=== PATIENT | male | born 1985 | race Caucasian/White ===

== ENCOUNTER 2017-08-08 20:32 | Emergency (ER) | payer SELFPAY ==
[~2017-08-08] VITALS: Ht 172.7 cm; Wt 71.2 kg
[2017-08-08 21:22] LABS: INFLUENZA A NONE DETECTED (NONE DETECT); INFLUENZA B NONE DETECTED (NONE DETECT)
[2017-08-08] MEDS ORDERED: AMOXICILLIN500 MG PO (21:28)
[2017-08-08] MEDS ORDERED: ROBITUSSIN AC10 ML PO (21:28)
[2017-08-08 21:39] VITALS: BP 127/86
== END 2017-08-08 21:40 | disposition home or self-care (01) | DRG 153 ==
LOC: ED 20:32
PROVIDERS: Emergency Medicine
DX: J02.9 Acute pharyngitis, unspecified (principal); F17.210 Nicotine dependence, cigarettes, uncomplicated

== ENCOUNTER 2017-08-18 16:36 | Emergency (ER) | payer SELFPAY ==
[~2017-08-18] VITALS: Ht 172.7 cm; Wt 75.0 kg
[~2017-08-18 16:36] MED LIST: AMOXICILLIN500 MG PO; ROBITUSSIN AC10 ML PO
[2017-08-18] MEDS ORDERED: TORADOL PO (18:18)
[2017-08-18 18:45] VITALS: BP 124/71
== END 2017-08-18 18:45 | disposition home or self-care (01) | DRG 605 ==
LOC: ED 16:36
DX: S00.03XA Contusion of scalp, initial encounter (principal); S00.01XA Abrasion of scalp, initial encounter; Y08.89XA Assault by other specified means, initial encounter; Y92.009 Unspecified place in unspecified non-institutional (private) residence as the place of occurrence of the external cause

== ENCOUNTER 2023-10-25 05:58 | Emergency (ER) | payer SELFPAY ==
[~2023-10-25] VITALS: Ht 172.7 cm; Wt 68.0 kg
[~2023-10-25 05:58] MED LIST changes: +TORADOL PO
[2023-10-25] MEDS ORDERED: AMOXICILLIN & POT CLAVULANATE 875 MG/TAB PO ONE (06:20)
[2023-10-25] MEDS ORDERED: AMOX/K CLAV875 M1 PO (06:26)
[2023-10-25 06:29] VITALS: BP 137/92
== END 2023-10-25 06:30 | disposition home or self-care (01) | DRG 153 ==
LOC: ED 05:58
DX: H65.91 Unspecified nonsuppurative otitis media, right ear (principal); F17.200 Nicotine dependence, unspecified, uncomplicated

== ENCOUNTER 2024-03-25 03:34 | Emergency (ER) | payer SELFPAY ==
[~2024-03-25] VITALS: Ht 172.7 cm; Wt 75.0 kg
[~2024-03-25 03:34] MED LIST changes: +AMOX/K CLAV875 M1 PO; +NAPROXEN500 MG PO
[2024-03-25 04:39] VITALS: BP 138/90
[2024-03-25] MEDS ORDERED: KETOROLAC TROMETHAMINE 15 MG/ML SDV IV ONE (04:40)
[2024-03-25] MEDS ORDERED: HYDROmorphone HCL 2 MG/AMP IV ONE (04:40)
[2024-03-25] MEDS ORDERED: PIPERACILLIN Sodium-Tazobactam 3.375 GM in SODIUM CHLORIDE 0.9% 100 ML IV ONE (04:40)
[2024-03-25 04:45] VITALS: BP 148/93
[2024-03-25] MEDS ORDERED: AMOX/K CLAV875 M1 PO (05:36)
[2024-03-25] MEDS ORDERED: HYDROCO/APAP1 T10 PO (05:41)
[2024-03-25 07:51] VITALS: BP 148/93
== END 2024-03-25 07:52 | disposition home or self-care (01) | DRG 914 ==
LOC: ED 03:34
DX: S51.841A Puncture wound with foreign body of right forearm, initial encounter (principal); X95.01XA Assault by airgun discharge, initial encounter; F17.200 Nicotine dependence, unspecified, uncomplicated